=== PATIENT | female | born 1985 | race Caucasian/White ===

== ENCOUNTER → 2024-05-06 10:52 | Outpatient (REF) | payer OTHER, SELFPAY | LOC: RAD 10:52 | PROVIDERS: ATTENDING PHYSICIAN Student in an Organized Health Care Education/Training Program; FAMILY PHYSICIAN Internal Medicine | DX: S30.0XXD Contusion of lower back and pelvis, subsequent encounter (principal) | CPT/HCPCS: 76705 ==